=== PATIENT | female | born 1975 | race Caucasian/White ===

== ENCOUNTER → 2020-02-24 | Outpatient (CLI) | payer BC, OTHER | LOC: HEART 5 09:51 | DX: R00.2 Palpitations (principal); R00.1 Bradycardia, unspecified; I08.1 Rheumatic disorders of both mitral and tricuspid valves | CPT/HCPCS: 93306 ==

== ENCOUNTER → 2021-05-27 | Outpatient (CLI) | payer BC | LOC: KOH-I 15:36 | DX: R22.41 Localized swelling, mass and lump, right lower limb (principal) | CPT/HCPCS: 76882 ==